=== PATIENT | female | born 1990 | race African-American/Black ===

== ENCOUNTER 2018-10-19 19:36 | Emergency (ER) | payer OTHER ==
[~2018-10-19] VITALS: Ht 157.5 cm; Wt 95.3 kg
[~2018-10-19 19:36] MED LIST: IBUPROFEN 800800 M1 PO; PENICILLIN VK250 MG PO; TRAMADOL 50 MG50 MG PO
[2018-10-19] MEDS ORDERED: PHENDIMETRAZINE35 MG PO (20:22)
[2018-10-19] MEDS ORDERED: PHENTERMINE H37.5 M1 PO (20:22)
[2018-10-19 21:09] LABS: URINE BILIRUBIN NEGATIVE (Negative); URINE BLOOD 3+ (Negative); URINE CLARITY CLEAR; URINE COLOR YELLOW; URINE GLUCOSE-RANDOM* NEGATIVE (Negative); URINE KETONES NEGATIVE (Negative); URINE NITRITE-REFLEX NEGATIVE (Negative); URINE PROTEIN (DIPSTICK) NEGATIVE (Negative); URINE SPECIFIC GRAVITY <= 1.005 (1.005-1.035)
[2018-10-19 21:13] LABS: URINE LEUKOCYTES-REFLEX 2+ (Negative)
[2018-10-19 21:19] LABS: CASTS None Seen /LPF (None Seen); CRYSTALS None Seen /LPF (None Seen); MUCUS 0-3 Light strn/LPF (None Seen); SQUAMOUS 0-3 Few /LPF (0-3); TRANSITIONAL EPITHEL CELL 0-3 Few /LPF (None Seen); URINE RBC 3-10 Few /HPF (0-2); URINE WBC-REFLEX >25 Many /HPF (0-5); WBC CLUMPS Few (None Seen)
[2018-10-19 22:03] LABS: ABSOLUTE NEUTROPHILS 6.9 thou/uL (1.4-8.2); BASOPHILS 0.3 % (0.0-2.0); HEMATOCRIT 37.4 % (37.0-47.0); HEMOGLOBIN 12.5 gm/dL (12.0-15.0); LYMPHOCYTES 11.8 % (24.0-44.0); MCH 28.6 pg (26.0-34.0); MCHC 33.3 g/dL (28.0-37.0); MCV 85.9 fL (80.0-100.0); MONOCYTES 9.5 % (1.0-8.0); PLATELET COUNT 228 thou/uL (150-400); POLYS 78.4 % (36.0-66.0); RBC 4.35 mil/uL (4.20-5.00); RDW 12.5 % (10.5-14.5); WBC 8.8 thou/uL (4.0-11.0)
[2018-10-19 22:10] LABS: CALCIUM 8.8 mg/dL (8.5-10.1); CREATININE 1.1 mg/dL (0.6-1.0); POTASSIUM 3.7 mmol/L (3.5-5.1)
[2018-10-19 22:16] LABS: ALBUMIN 3.9 g/dL (3.4-5.0); TOTAL BILIRUBIN 0.9 mg/dL (<0.1-1.0); TOTAL PROTEIN 8.1 g/dL (6.4-8.2)
[2018-10-19] MEDS ORDERED: NORCO 5-325 TA1 EAC1 PO (22:37)
[2018-10-19] MEDS ORDERED: NAPROSYN500 MG PO (22:37)
[2018-10-19] MEDS ORDERED: BACTRIM DS TAB1 EACH PO (22:37)
[2018-10-19 23:13] VITALS: BP 115/85
== END 2018-10-19 23:28 | disposition home or self-care (01) ==
LOC: ER 19:36
PROVIDERS: Physician Assistant
DX: N12 Tubulo-interstitial nephritis, not specified as acute or chronic (principal); R19.7 Diarrhea, unspecified